=== PATIENT | female | born 1930 | race Caucasian/White ===

== ENCOUNTER 2021-01-07 10:01 | Emergency (ER) | payer MEDICARE ==
[~2021-01-07] VITALS: Ht 167.6 cm; Wt 63.4 kg
[2021-01-07] MEDS ORDERED: fentaNYL/PF 50MCG/1 ML 2ML syringe IV ONE (10:40)
[2021-01-07] MEDS ORDERED: heparin 10,000 units/1 ML INJ IV ONE (10:40)
[2021-01-07] MEDS ORDERED: ondansetron/PF 4mg/2ml inj IV ONE ×2 (10:40)
[2021-01-07] MEDS ORDERED: etomidate 2mg/ml inj. IV ONE (10:40)
[2021-01-07] MEDS ORDERED: amiodarone 150mg/dext, iso-os 100 ML IV ONE (10:40)
[2021-01-07 10:52] LABS: BASOPHILS % (AUTO) 0.6 % (0-1); EOSINOPHILS % (AUTO) 0.5 % (0-6); HEMATOCRIT 45.5 % (35.0-45.0); HEMOGLOBIN 15.2 g/dl (12.0-16.0); LYMPHOCYTES % (AUTO) 29.6 % (21-51); MEAN CORPUSCULAR HEMOGLOBIN 36.3 PG (27.0-31.0); MEAN CORPUSCULAR HGB CONC 33.5 g/dL (33.0-36.5); MEAN CORPUSCULAR VOLUME 108.4 FL (78-98); MEAN PLATELET VOLUME 7.9 FL (7.4-10.4); MONOCYTES # (AUTO) 0.5 X10'3 (0-0.9); MONOCYTES % (AUTO) 6.9 % (2-12); NEUTROPHILS # (AUTO) 4.2 X10'3 (1.8-7.7); NEUTROPHILS % (AUTO) 62.4 % (42-75); PLATELET COUNT 206 X10'3 (140-440); RED BLOOD COUNT 4.19 X10'6 (4.20-5.60); RED CELL DISTRIBUTION WIDTH 14.1 % (11.5-14.5); WHITE BLOOD COUNT 6.8 X10'3 (4.5-11.0)
[2021-01-07 11:17] LABS: D-DIMER 0.51 MG/L FEU (0-0.50)
[2021-01-07 11:17] LABS: ALANINE AMINOTRANSFERASE 22 U/L (12-78); ALBUMIN 4.2 G/DL (3.4-5.0); ALBUMIN/GLOBULIN RATIO 1.1 (1.1-1.5); ALKALINE PHOSPHATASE 59 IU/L (46-116); ANION GAP 12 (8-16); ASPARTATE AMINO TRANSFERASE 16 U/L (10-37); BILIRUBIN,TOTAL 0.5 MG/DL (0.1-1.0); BLOOD UREA NITROGEN 14 MG/DL (7-18); BUN/CREATININE RATIO 15.2 (6.6-38.0); CHLORIDE 102 MMOL/L (99-107); CREATININE 0.92 MG/DL (0.40-0.90); GLUCOSE 115 MG/DL (70-104); POTASSIUM 3.9 MMOL/L (3.5-5.1); SODIUM 139 MMOL/L (135-145); TOTAL CARBON DIOXIDE 25.3 MMOL/L (24-32); eGFR 58 ML/MIN
[2021-01-07] MEDS ORDERED: APIX5TAB3 PO (12:00)
[2021-01-07] MEDS ORDERED: SOTA80TA PO (12:00)
[2021-01-07 12:22] VITALS: BP 149/89
== END 2021-01-07 12:38 | disposition home or self-care (01) ==
LOC: ER 10:01
DX: I48.91 Unspecified atrial fibrillation (principal); N28.9 Disorder of kidney and ureter, unspecified; I10 Essential (primary) hypertension; Z90.710 Acquired absence of both cervix and uterus
CPT/HCPCS: 36415; 71045; 80053; 84443; 84484; 85025; 85379; 92960; 93005; 94799; 96374; 96375; 99152; 99285; J1644; J2405; J3010

== ENCOUNTER 2022-05-29 10:10 | Emergency (ER) | payer MEDICARE ==
[~2022-05-29] VITALS: Ht 165.1 cm; Wt 60.9 kg
[~2022-05-29 10:10] MED LIST: APIX5TAB3 PO; SOTA80TA PO
[2022-05-29 10:46] LABS: BASOPHILS % (AUTO) 0.6 % (0-1); EOSINOPHILS % (AUTO) 0.2 % (0-6); HEMATOCRIT 40.3 % (35.0-45.0); HEMOGLOBIN 13.6 g/dl (12.0-16.0); LYMPHOCYTES # (AUTO) 1.6 X10'3 (1.1-4.8); LYMPHOCYTES % (AUTO) 33.3 % (21-51); MEAN CORPUSCULAR HEMOGLOBIN 36.6 PG (27.0-31.0); MEAN CORPUSCULAR HGB CONC 33.7 g/dL (33.0-36.5); MEAN CORPUSCULAR VOLUME 108.5 FL (78-98); MEAN PLATELET VOLUME 7.9 FL (7.4-10.4); MONOCYTES # (AUTO) 0.6 X10'3 (0-0.9); MONOCYTES % (AUTO) 12.7 % (2-12); NEUTROPHILS # (AUTO) 2.5 X10'3 (1.8-7.7); NEUTROPHILS % (AUTO) 53.2 % (42-75); PLATELET COUNT 191 X10'3 (140-440); RED BLOOD COUNT 3.71 X10'6 (4.20-5.60); RED CELL DISTRIBUTION WIDTH 13.3 % (11.5-14.5); WHITE BLOOD COUNT 4.8 X10'3 (4.5-11.0)
[2022-05-29 11:01] LABS: ALANINE AMINOTRANSFERASE 12 U/L (12-78); ALBUMIN 3.3 G/DL (3.4-5.0); ALBUMIN/GLOBULIN RATIO 0.9 (1.1-1.5); ALKALINE PHOSPHATASE 59 IU/L (46-116); ANION GAP 7 (8-16); ASPARTATE AMINO TRANSFERASE 18 U/L (10-37); BILIRUBIN,TOTAL 0.9 MG/DL (0.1-1.0); BLOOD UREA NITROGEN 18 MG/DL (7-18); BUN/CREATININE RATIO 17.1 (6.6-38.0); CHLORIDE 103 MMOL/L (99-107); CREATININE 1.05 MG/DL (0.40-0.90); GLUCOSE 130 MG/DL (70-104); SODIUM 137 MMOL/L (135-145); TOTAL CARBON DIOXIDE 27.3 MMOL/L (24-32); TOTAL PROTEIN 6.8 G/DL (6.4-8.2); eGFR 49 ML/MIN
[2022-05-29 11:09] LABS: MAGNESIUM 1.7 MG/DL (1.5-2.4)
[2022-05-29] MEDS ORDERED: bacitracin 15gm ointment TP ONE (12:40)
[2022-05-29] MEDS ORDERED: etomidate 2mg/ml inj. IV ONE (13:35)
[2022-05-29] MEDS ORDERED: fentaNYL/PF 50MCG/1 ML 2ML syringe IV ONE (13:35)
[2022-05-29 16:10] VITALS: BP 135/75
== END 2022-05-29 16:12 | disposition home or self-care (01) ==
LOC: ER 10:10
DX: U07.1 COVID-19 (principal); I48.20 Chronic atrial fibrillation, unspecified; I10 Essential (primary) hypertension; Z90.710 Acquired absence of both cervix and uterus; Z79.899 Other long term (current) drug therapy
CPT/HCPCS: 36415; 70450; 71045; 80053; 83735; 83880; 84484; 85025; 85379; 92960; 93005; 99152; 99153; 99285; J3010; J3490; 94760; A6258; A6402; A6449